=== PATIENT | female | born 1955 | race Caucasian/White ===

== ENCOUNTER 2020-06-21 09:24 | Inpatient (IN) | payer MEDICARE, MEDICAID, SELFPAY ==
[2020-06-21] VITALS (11 sets, daily range): BP systolic 97–138; BP diastolic 53–77; PULSE 83–112; RESP 17–18; TEMP 36.4–36.9; O2SAT 93–99; BMI 29.3
--- NOTE | 2020-06-21 09:48 | ED_ITS ---
HPI - GI Bleed General: Chief complaint: GI Bleed Stated complaint: Bloody Stool Time Seen by Provider: 06/21/20 09:37 History of Present Illness: HPI Narrative: 64-year-old female comes in complaining of abdominal pain with nausea and bloody stools loss of appetite. Bloody stools began last night around 2100 states she has been passing blood mixed with solid stools initially and then turned to just large almost what appeared to be blood clots said it settles to the bottom of the toilet bowl. She is not previously had this level of blood rectal bleeding she has had problems in the past with hemorrhoids although she does not have any abdomen bothering her recently. She is nauseous but not been actually vomiting. Denies chest pain shortness of breath no dysuria urgency or frequency. complaint: blood streaked stool and gross hematochezia Onset (ago): hour(s) Pain Consistency: constant Severity: moderate Relieving factors: rest Exacerbating factors: eating and movement Context: hemorrhoids Associated symptoms: Reports abdominal pain, malaise, nausea and poor appetite; Denies chills, easy bruising, epistaxis, fever(s), headache(s), other bleeding, rash, syncope, vomiting or weakness Treatments Prior to Arrival: none Review of Systems Const: Reports: malaise; Denies: fever(s) or chills ENMT: Denies: epistaxis Card: Denies: syncope Resp: Denies: dyspnea, productive cough or non-productive cough GI: Reports: abdominal pain and nausea; Denies: vomiting : Denies: flank pain, difficulty voiding, dysuria, urinary frequency or urinary urgency Skin/Breast: Denies: rash Neuro: Denies: headache(s) Tai/Lymph: Denies: easy bruising PFSH ED PFSH: Medical History Colon polyps GERD (gastroesophageal reflux disease) HLD (hyperlipidemia) Pancreatitis Pulmonary fungal infection Smoking addiction Surgical History (Updated 06/21/20 @ 15:52 by Ciaran Matos MD) H/O shoulder surgery H/O tubal ligation Hx of cholecystectomy Hx of hysterectomy Partial Family History Father Alzheimer's disease Mother Alzheimer's disease Social History Smoking and tobacco status: current some day smoker Alcohol intake: never Substance/Drug Use: never Lives independently: Yes Household members: significant other Physical Exam Const: COMMON NORMALS: no acute distress GENERAL APPEARANCE: cooperative and comfortable ORIENTATION/CONSCIOUSNESS: Yes awake, Yes oriented to person, Yes oriented to place and Yes oriented to time HENMT: COMMON NORMALS: normocephalic, atraumatic and hearing grossly normal bilaterally HEAD & SCALP: normocephalic and atraumatic Neck/C-Spine: COMMON NORMALS: no JVD Resp: COMMON NORMALS: normal respiratory effort, No retractions, No use of accessory muscles and clear to auscultation bilaterally AUSCULTATION: clear to auscultation bilaterally Cardio: COMMON NORMALS: no JVD, regular rate, regular rhythm and No murmurs present (Cardio) RATE: regular rate RHYTHM: regular rhythm GI: COMMON NORMALS: No hepatosplenomegaly present AUSCULTATION: Yes normoactive bowel sounds PALPATION: Yes Tenderness to palpation present (GI) Details: RLQ, Yes Guarding due to palpation present (GI) in the RLQ and Yes No hepatosplenomegaly present Extremity: COMMON NORMALS: normal to inspection, capillary refill normal, no clubbing, cyanosis or edema, no calf tenderness and no pedal edema Neuro: SENSORIUM/ORIENTATION: Yes oriented to person, Yes oriented to place and Yes oriented to time Skin: COMMON NORMALS: no rashes or lesions noted GENERAL SKIN EXAM: no rashes or lesions noted Course Vital Signs: Vital signs: Vital Signs Temperature 97.6 F 06/21/20 14:00 Pulse Rate 93 06/21/20 15:14 Respiratory Rate 18 06/21/20 15:14 Blood Pressure 101/67 06/21/20 14:17 Pulse Oximetry 94 06/21/20 15:14 MDM - GI Bleed MDM Narrative: Medical decision making narrative: Is a fairly large segment of descending colon that shows signs of colitis with no luminal narrowing no focal point areas are noted on the CT. Concerning because of the amount of air and stool accumulating proximal to that point. That combined with the degree of pain I think it would be best to monitor her here on IV antibiotics discussed Dr. Matos will consult Dr. Vila. I have called and discussed to both of them orders are written. Lab Data: Labs: Lab Results 06/21/20 06/21/20 06/21/20 Range/Units 10:05 10:09 10:09 WBC 10.4 H (4.0-10.0) 10^3/ uL RBC 4.79 (4.1-5.3) 10^6/u L Hgb 14.1 (11.5-15.3) g/dL Hct 44.0 (37.0-47.0) % MCV 91.9 (81-99) fL MCH 29.4 (28.0-34.0) pg MCHC 32.0 (30.0-36.0) g/dL RDW 13.4 (12.1-15.1) % Plt Count 286 (130-400) 10^3/c mm MPV 10.0 (7.4-10.4) fL Neut % (Auto) 67.5 % Lymph % (Auto) 26.3 % Otero % (Auto) 5.4 % Eos % (Auto) 0.3 % Baso % (Auto) 0.3 % Neut # (Auto) 7.00 (1.8-7.7) 10^3/u L Lymph # (Auto) 2.7 (0.8-4.8) 10^3/u L Otero # (Auto) 0.6 (0.2-0.9) 10^3/u L Eos # (Auto) 0.0 (0.0-0.8) 10^3/u L Baso # (Auto) 0.0 (0.0-0.1) 10^3/u L Nucleated RBC % (a uto) 0 % Nucleated RBCs # 0.0 /100WBC PT (12.1-14.9) SECO NDS INR (0.8-1.2) APTT (23.9-36.7) SECO NDS Sodium (136-145) mmol/L Potassium (3.5-5.1) mmol/L Chloride (98-107) mmol/L Carbon Dioxide (22-29) mmol/L Anion Gap (5-19) BUN (8-23) mg/dL Creatinine (0.5-0.9) mg/dL GFR Calculation (90-130) mL/min Glucose (65-115) mg/dL Calculated Osmolal ity (285-295) mOsm/k g Lactic Acid 1.3 (0.5-2.2) mmol/L Calcium (8.5-10.5) mg/dL Magnesium (1.7-2.3) mg/dL Total Bilirubin (0.15-1.2) mg/dL AST (0-32) U/L ALT (0-33) U/L Alkaline Phosphata se (35-105) IU/L Total Protein (6.6-8.7) g/dL Albumin (3.5-5.2) g/dL Globulin (1.3-4.6) g/dL Lipase (13-60) U/L Urine Color Yellow (Yellow) Urine Appearance Clear (CLEAR) Urine pH 6.5 (5-7) Ur Specific Gravit y 1.015 (1.005-1.030) Urine Protein Neg (Negative) Urine Glucose (UA) Norm (Normal) Urine Ketones Negative (Negative) Urine Blood 2+ H (Negative) Urine Nitrate Negative (Negative) Urine Bilirubin Neg (Negative) Urine Urobilinogen Norm (Negative) mg/dL Ur Leukocyte Kaur ase Negative (Negative) Urine RBC 5-10 H (0-2) /hpf Urine WBC 0-4 H (0-5) /hpf Ur Squamous Epith Cells 5-10 H (0-5) /hpf Amorphous Sediment Not Reportable Urine Bacteria 1+ H (NONE) /hpf 06/21/20 06/21/20 Range/Units 10:09 10:09 WBC (4.0-10.0) 10^3/ uL RBC (4.1-5.3) 10^6/u L Hgb (11.5-15.3) g/dL Hct (37.0-47.0) % MCV (81-99) fL MCH (28.0-34.0) pg MCHC (30.0-36.0) g/dL RDW (12.1-15.1) % Plt Count (130-400) 10^3/c mm MPV (7.4-10.4) fL Neut % (Auto) % Lymph % (Auto) % Otero % (Auto) % Eos % (Auto) % Baso % (Auto) % Neut # (Auto) (1.8-7.7) 10^3/u L Lymph # (Auto) (0.8-4.8) 10^3/u L Otero # (Auto) (0.2-0.9) 10^3/u L Eos # (Auto) (0.0-0.8) 10^3/u L Baso # (Auto) (0.0-0.1) 10^3/u L Nucleated RBC % (a uto) % Nucleated RBCs # /100WBC PT 13.30 (12.1-14.9) SECO NDS INR 0.98 (0.8-1.2) APTT 30.2 (23.9-36.7) SECO NDS Sodium 141 (136-145) mmol/L Potassium 4.0 (3.5-5.1) mmol/L Chloride 108 H (98-107) mmol/L Carbon Dioxide 21 L (22-29) mmol/L Anion Gap 16.0 (5-19) BUN 15 (8-23) mg/dL Creatinine 0.5 (0.5-0.9) mg/dL GFR Calculation 123.8 (90-130) mL/min Glucose 107 (65-115) mg/dL Calculated Osmolal ity 293 (285-295) mOsm/k g Lactic Acid (0.5-2.2) mmol/L Calcium 8.6 (8.5-10.5) mg/dL Magnesium 2.1 (1.7-2.3) mg/dL Total Bilirubin 0.2 (0.15-1.2) mg/dL AST 12 (0-32) U/L ALT 14 (0-33) U/L Alkaline Phosphata se 111 H (35-105) IU/L Total Protein 7.1 (6.6-8.7) g/dL Albumin 4.0 (3.5-5.2) g/dL Globulin 3.1 (1.3-4.6) g/dL Lipase 21 (13-60) U/L Urine Color (Yellow) Urine Appearance (CLEAR) Urine pH (5-7) Ur Specific Gravit y (1.005-1.030) Urine Protein (Negative) Urine Glucose (UA) (Normal) Urine Ketones (Negative) Urine Blood (Negative) Urine Nitrate (Negative) Urine Bilirubin (Negative) Urine Urobilinogen (Negative) mg/dL Ur Leukocyte Kaur ase (Negative) Urine RBC (0-2) /hpf Urine WBC (0-5) /hpf Ur Squamous Epith Cells (0-5) /hpf Amorphous Sediment Urine Bacteria (NONE) /hpf Discharge Plan Discharge Patient Disposition: Admitted As Inpatient Admit Provider: Ciaran Matos Clinical Impression: Acute colitis, Obstipation, Stenosis of colon Condition: Stable Coding Level of Care Code 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
[2020-06-21 10:19] LABS: Basophils % 0.3 %; Eosinophils % 0.3 %; Hemoglobin 14.1 g/dL (11.5-15.3); Lymphocytes # 2.7 10^3/uL (0.8-4.8); Lymphocytes % 26.3 %; Mean Corpuscular Hemoglobin 29.4 pg (28.0-34.0); Mean Corpuscular Volume 91.9 fL (81-99); Monocytes # 0.6 10^3/uL (0.2-0.9); Monocytes % 5.4 %; Neutrophils % 67.5 %; Nucleated Red Blood Cells % 0 %; Platelet Count 286 10^3/cmm (130-400); Red Blood Count 4.79 10^6/uL (4.1-5.3); Red Cell Distribution Width 13.4 % (12.1-15.1); White Blood Count 10.4 10^3/uL (4.0-10.0)
[2020-06-21 10:26] LABS: Urine Appearance Clear (CLEAR); Urine Color Yellow (Yellow); pH Urine 6.5 (5-7)
[2020-06-21 10:27] LABS: Add Urine Microscopic? YES; Bilirubin Urine Neg (Negative); Blood Urine 2+ (Negative); Glucose Urine UA Norm (Normal); Ketones Urine Negative (Negative); Leukocyte Esterase Urine Negative (Negative); Nitrate Urine Negative (Negative); Protein Urine Neg (Negative); Specific Gravity, Urine 1.015 (1.005-1.030); Urobilinogen Urine Norm (Negative)
[2020-06-21 10:36] LABS: INR 0.98 (0.8-1.2); Partial Thromboplastin Time 30.2 SECONDS (23.9-36.7)
[2020-06-21 10:40] LABS: Lactic Sepsis W/Reflex 1.3 mmol/L (0.5-2.2)
[2020-06-21 10:42] LABS: Alanine Aminotransferase 14 U/L (0-33); Alkaline Phosphatase 111 IU/L (35-105); Aspartate Amino Transferase 12 U/L (0-32); Blood Urea Nitrogen 15 mg/dL (8-23); Calcium 8.6 mg/dL (8.5-10.5); Carbon Dioxide 21 mmol/L (22-29); Chloride 108 mmol/L (98-107); Globulin 3.1 g/dL (1.3-4.6); Glomerular Filtration Rate 123.8 mL/min (90-130); Glucose 107 mg/dL (65-115); Lipase 21 U/L (13-60); Magnesium 2.1 mg/dL (1.7-2.3); Osmolality Calculated 293 mOsm/kg (285-295); Sodium 141 mmol/L (136-145); Total Bilirubin 0.2 mg/dL (0.15-1.2); Total Protein 7.1 g/dL (6.6-8.7)
[2020-06-21] MEDS: morphine 4 mg/mL SDV 1 mL IVP ×3 (10:45→21:27)
[2020-06-21] MEDS: ondansetron 2 mg/ML SDV 2 mL 4 MG IVP ×3 (10:45→21:30)
[2020-06-21] MEDS: sodium chloride 0.9% 1,000 ML 999 ML IV (10:46)
[2020-06-21 10:48] LABS: WBC Urine 0-4 /hpf (0-5)
[2020-06-21 10:49] LABS: Add Urine Culture? No; Bacteria Urine 1+ /hpf
--- NOTE | 2020-06-21 11:00 | CT_ITS ---
WS: [id number] CT ABDOMEN AND PELVIS WITH CONTRAST HISTORY: Pain, blood in stool. TECHNIQUE: Imaging performed of the abdomen and pelvis with IV contrast. Single phase imaging of the abdomen. Coronal and sagittal reformats are submitted. All CT scans at [facility] use at least one of these dose optimization techniques: automated exposure control; mA and/or kV adjustment per patient size (includes targeted exams where dose is matched to clinical indication); or iterativ e reconstruction. IV CONTRAST: Omnipaque 300; 95 mL IV. Oral contrast: No DLP: 1733.93 mGy.cm COMPARISON: 11/10/2018 Lower thorax: Stable benign granuloma at the LEFT lung base. Heart is normal size. No hiatal hernia. Liver/biliary system: Normal size with no intrahepatic dilatation. Gallbladder: Status post cholecystectomy. Pancreas: Normal size pancreas and pancreatic duct. No adjacent inflammation. Spleen: Normal size spleen. No mass or infarct. Adrenal glands: Normal RIGHT adrenal gland. Low-attenuation nodule in the LEFT adrenal gland measures 12 mm. Probably present on the prior study but better seen today. Right kidney: No obstruction or hydronephrosis. 11 mm low-attenuation nodule in the lower pole of the RIGHT kidney slightly increased in size since the prior study from 2019. Additional too small to judy racterize nodules. Left kidney: Extrarenal pelvis. No hydronephrosis. Aorta: Moderate atherosclerosis with no aneurysm. Lymphadenopathy: None. Free fluid: None. GI tract: Normal appendix. Large amount of retained feces in the RIGHT colon. Beginning at the spleni c flexure there is narrowing of the lumen with circumferential mucosal thickening and mild pericoloni c edema extending to the sigmoid. Long segment of luminal narrowing causing a mild more proximal obst ruction. There are additional diverticula. Abdominal wall: Unremarkable abdominal wall. No hernia. Pelvis: No free fluid or adenopathy within the pelvis. 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 Mild LEFT curvature lumbar spine. CT/CT abdomen pelvis w con* [id number] IMPRESSION: 1. Long segment area of moderate mucosal thickening and luminal narrowing begi nning at the splenic flexure through the sigmoid colon. Due to the long segment involvement this is probably an area of colitis, may be infectious or inflamma tory. 2. Proximal to the luminal narrowing is retention of air and fecal material se condary to a mild obstructive pattern. 3. Prior cholecystectomy. 4. Moderate atherosclerosis aorta. 5. LEFT adrenal 11 mm nodule. Probably present on the prior study from 2019 bu t better seen today due to slight increase in size.
[2020-06-21] MEDS: iohexol 300 mg/mL 100 mL Btl IV (11:18)
--- NOTE | 2020-06-21 11:26 | PC.NURSE ---
nurse present in room whilst ED physician performed rectal exam. occult stool + for blood at bedside
[2020-06-21] MEDS: ciprofloxacin 400 MG/200 ML PREMIX 200 MG IV (12:42)
[2020-06-21] MEDS: metroNIDAZOLE IV 500 MG/100 ML PREMIX 100 MG IV (13:48)
--- NOTE | 2020-06-21 15:47 | PM.HP ---
Providers/Chief Complaint Admitting Physician: Ciaran Matos Primary Care Provider: Jorge Nielson Chief Complaint: Bloody Stool History of Present Illness Pleasant 64-year-old lady with history of colonic polyps, followed by colonoscopy at [facility] by Dr. 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 Then this morning again diarrhea mixed with blood, and subsequently stool hardened to pellet consistency. Reports has occasional loose stools ever since having cholecystectomy, but never bloody diarrhea. Reports was feeling hot yesterday. Denies measuring fever. Has been having nausea, no vomiting. Her boyfriend has been doing okay. Chicken brats or from [email or web address]. States the boiled and first, then fried. Denies eating at any other outside places. Did not collect/eat any much from [place] did not drink any water from outside. States gets bottled water. In ER noted with minutely elevated WBC count 10.4, afebrile, heart rate initially in the 100s, then in the 90s. Hemoglobin 14.1. Platelets 286. INR 0.98. Sodium 141. Potassium 4. Chloride 108. Bicarbonate 21. Anion gap 16. BUN 15. Creatinine 0.5. Lactic acid 1.3. Calcium 8.6. Magnesium 2.1. Bilirubin 0.2. AST 12. ALT 14. Alk phos 111. Urinalysis with 5-10 RBC. 0-4 WBC. 5-10 squamous epithelial cells. 1+ bacteria. In ER CT abdomen pelvis showing long segment area of moderate mucosal thickening and luminal narrowing beginning at splenic flexure through the sigmoid colon. Due to long segment involved thought to be probably area of colitis. May be infectious or inflammatory. Proximal to the luminal narrowing is retention of air and fecal matter secondary to mild obstructive pattern. Prior cholecystectomy. Moderate atherosclerotic aorta. Left adrenal 11 mm nodule. Thought to be probably present on prior study in 2019, but better seen currently due to slight increase in size. She denies any aspirin, anticoagulation use. Review of Systems Const: Reports: malaise; Denies: fever(s), chills or body aches Eyes: Denies: change in vision or eye redness ENMT: Denies: throat pain, oral sores or ear or mastoid pain Card: Denies: chest pain, edema, pre-syncope or dyspnea on exertion Resp: Denies: dyspnea, productive cough, change in phlegm color or hemoptysis GI: Reports: abdominal pain, nausea, diarrhea and hematochezia; Denies: vomiting, constipation or melena : Denies: flank pain, urinary frequency or hematuria Musc: Denies: back pain, joint swelling or joint redness Skin/Breast: Denies: rash, sores or new lesions Neuro: Denies: headache(s), numbness in extremities, weakness in extremities, dizziness, confusion or seizure-like activity Endo: Denies: polyuria or polydipsia Tai/Lymph: Denies: easy bleeding or purpura All/Imm: Denies: urticaria, throat swelling or tongue swelling Medications/Allergies Home Medications Medication Instructions Recorded Confirmed Last Taken Type fenofibrate nanocrystallized 48 mg PO DAILY 06/21/20 06/21/20 06/21/20 History lovastatin 20 mg PO DAILY 06/21/20 06/21/20 06/20/20 History omeprazole 40 mg PO DAILY 06/21/20 06/21/20 06/20/20 History tiotropium bromide [Spiriva with 1 cap INHALATION DAILY 06/21/20 06/21/20 06/20/20 History HandiHaler] Allergies Allergy/AdvReac Type Severity Reaction Status Date / Time latex Allergy ALGY-Hives Verified 06/21/20 09:34 PFSH Acute PFSH: Medical History Colon polyps GERD (gastroesophageal reflux disease) HLD (hyperlipidemia) Pancreatitis Pulmonary fungal infection Smoking addiction Surgical History (Updated 06/21/20 @ 15:52 by Ciaran Matos MD) H/O shoulder surgery H/O tubal ligation Hx of cholecystectomy Hx of hysterectomy Partial Family History Father Alzheimer's disease Mother Alzheimer's disease Social History Smoking and tobacco status: current some day smoker Alcohol intake: never Substance/Drug Use: never Lives independently: Yes Household members: significant other Vitals/I&O/Wt Last Vital Signs Temp 97.6 F 06/21/20 14:00 Pulse 93 06/21/20 15:14 Resp 18 06/21/20 15:14 BP 101/67 06/21/20 14:17 Pulse Ox 94 06/21/20 15:14 06/21/20 06/21/20 06/21/20 06:59 14:59 22:59 Intake Total 1200 / 1200 100 / 1300 Balance 1200 / 1200 100 / 1300 Weight last 48 hrs Weight 90.265 kg Physical Exam Const: COMMON NORMALS: no acute distress and patient oriented x3 HENMT: COMMON NORMALS: oropharynx normal Neck/C-Spine: COMMON NORMALS: no JVD Resp: COMMON NORMALS: normal respiratory effort and clear to auscultation bilaterally AUSCULTATION: clear to auscultation bilaterally Cardio: COMMON NORMALS: no JVD, regular rhythm, S1 normal heart sound present, S2 normal heart sound present and No murmurs present (Cardio) RHYTHM: regular rhythm HEART SOUNDS: S1 normal heart sound present and S2 normal heart sound present GI: COMMON NORMALS: Normal to inspection, nondistended, normoactive bowel sounds present and Soft to palpation PALPATION: Yes Soft to palpation and Yes Tenderness to palpation present (GI) (Right lower quadrant) Extremity: COMMON NORMALS: no joint enlargement and no pedal edema Neuro: COMMON NORMALS: patient oriented x3 and moves all extremities Skin: COMMON NORMALS: no rashes or lesions noted GENERAL SKIN EXAM: no rashes or lesions noted Data : 06/21/20 10:09 06/21/20 10:09 A&P Assessment and plan (1) Acute colitis: Acute colitis with hemorrhagic component, long segment of area of moderate mucosal thickening and luminal narrowing in the splenic flexure through the sigmoid colon. Occasional prior loose stools following cholecystectomy, but no history of bloody diarrhea that is recurrent. IBD. Suspected colitis secondary to infectious cause at this time. Possible inflammatory differential diagnosis. However, as discussed with her with history of polyps, smoking addiction, will need additional follow-up by endoscopy to exclude other causes including malignancy. At this time we will try to collect stool samples for laboratory analysis including culture, ova and parasites, C. difficile. Discussed with her options for treatment. She received Cipro and Flagyl in the ER. We will continue antibiotics for now. Discussed possibility of worsening/complication of hemorrhagic colitis with antibiotic treatment, risk of HUS. She is for now agreeable to continue. Follow labs. Bowel rest. No vomiting so far, hold off on NG tube. She requests for something to drink. Discussed with her bowel rest, she is agreeable for sips of water, ice chips for now. IV hydration. Symptomatic treatment of nausea, pain. Recheck hemoglobin. Status: Acute (2) Obstipation: With noted proximal to the luminal narrowing retention of air and fecal matter secondary to mild obstructive pattern. Discussed with her. For now bowel rest. In case of vomiting consider NG tube placement. Bowel regimen. Status: Acute (3) Stenosis of colon: Possible mild obstruction or pseudoobstruction. Discussed with her, possibly narrowing of the lumen secondary to mucosal inflammation, colitis, however, she is aware will need additional endoscopic follow-up after improvement of symptoms to exclude other causes including malignancy, inflammatory causes, etc. Status: Acute (4) Smoking addiction: Encouraged smoking cessation. Nicotine replacement as needed for cravings. Status: Acute (5) Microscopic hematuria: Incidentally noted. No urinary symptoms otherwise. Will need follow-up for resolution. Some of this May be secondary to bloody diarrhea with contamination of urine. Status: Acute (6) Alkaline phosphatase elevation: Incidental. Will request for GGT. Recheck liver parameters. INR is normal. Status post cholecystectomy. No intrahepatic dilation on CT. Status: Acute (7) Sinus tachycardia: Noted. Otherwise does not fit sepsis pattern. Monitor. Perhaps mild component of dehydration. Yesterday chicken brats were her only meal and with diarrhea. IV hydration while with bowel rest. Status: Acute Additional A&P Information GERD History of pulmonary fungal infection: Currently takes Spiriva HLD Attestations Medical Necessity Statement*: Admission of over 2 midnights ago to be needed for assessment of management of acute hemorrhagic colitis, mild obstruction or pseudoobstruction of bowel. Coding Level of Care Code Acute Drapery Examiner for [facility] Diagnoses Acute colitis K52.9 Obstipation K59.00 Stenosis of colon K56.699 Smoking addiction F17.200 Microscopic hematuria R31.29 Alkaline phosphatase elevation R74.8 Sinus tachycardia R00.0
[2020-06-21] MEDS: lactated ringers 1,000 ML 100 ML IV (16:04)
[2020-06-21] MEDS: famotidine 20 mg/2 mL INJ IVP (16:05)
[2020-06-21] MEDS: bisacodyl 10 mg Supp PR (16:06)
[2020-06-21] MEDS: heparin 5,000 unit/mL INJ 1 mL 5000 UNIT SUBCUT (16:06)
--- NOTE | 2020-06-21 16:27 | P.CONIM_ITS ---
Providers/Reason For Consult Consulting Physican/Specialty*: General Surgery Tyrone Roque MD Reason for Consult*: Colitis by CT, hematochezia. Attending Physician: Ciaran Matos Primary Care Provider: Jorge Nielson History of Present Illness History of Present Illness Danielle Cervantes is a 64 year old female who says she was in her normal state of health until last night around 9 PM when she had some bloody diarrhea. She says she has diarrhea frequently ever since she underwent a cholecystectomy in the past. She has never seen blood before, however. She spent her day doing some yard work yesterday and went looking for some mushrooms but did not find any to eat. She ended up having a chicken brat last night after it had been cooked thoroughly. Her boyfriend had the same thing and did not experience any problems. She drinks bottled water. She cannot think of any other strange food or drink over the past several days that she ate that he did not. The patient says during the night last night she continued to have bloody diarrhea. She had some chills and suspected she was running a fever but never took her temperature. She became nauseated but never vomited. She continues to pass flatus. She came to the hospital and a CAT scan showed changes consistent with colitis in the descending colon with some air and stool backed up behind this area. She says her bowel habits over the past several days have otherwise been completely normal for her and she normally has a bowel movement every day. She had a bowel movement just before coming up to the hospital floor and said there was still some blood in her stool. Of note, the patient has a history of colon polyps and frequently has colonoscopies in [place] (Dr. Schuster). She says her last colonoscopy was 2 or 3 years ago and she was told to have another colonoscopy in 5 years at that time. She seems to recall having several polyps removed during the last colonoscopy. She denies any regular NSAID use. Stool studies have been ordered. The patient is on ciprofloxacin and metronidazole. She is also on some subcutaneous heparin currently for DVT prophylaxis. Review of Systems General: Reports: 10 or more systems reviewed and unremarkable except in HPI and below Const: Reports: chills GI: Reports: abdominal pain, nausea, diarrhea (Somewhat chronic ever since her cholecystectomy) and hematochezia (Not usual at all for the patient); Denies: vomiting Meds/Allergies Home Medications and Allergies Home Medications Medication Instructions Recorded Confirmed Last Taken Type fenofibrate nanocrystallized 48 mg PO DAILY 06/21/20 06/21/20 06/21/20 History lovastatin 20 mg PO DAILY 06/21/20 06/21/20 06/20/20 History omeprazole 40 mg PO DAILY 06/21/20 06/21/20 06/20/20 History tiotropium bromide [Spiriva with 1 cap INHALATION DAILY 06/21/20 06/21/20 06/20/20 History HandiHaler] Allergies Allergy/AdvReac Type Severity Reaction Status Date / Time latex Allergy ALGY-Hives Verified 06/21/20 09:34 Current Medications Current Medications Generic Name Dose Route Start Last Admin Trade Name Freq PRN Reason Stop Dose Admin Bisacodyl 10 mg 06/21/20 15:05 06/21/20 16:06 Bisacodyl 10 Mg Supp OK 10 mg DAILY SAIMA Administration Famotidine 20 mg 06/21/20 15:05 06/21/20 16:05 Famotidine 20 Mg/2 Ml Inj IVP 20 mg Q12H SAIMA Administration Heparin Sodium (Beef Lung) 5,000 unit 06/21/20 16:00 06/21/20 16:06 Heparin 5,000 Unit/Ml Inj 1 Ml SUBCUT 5,000 unit Q12H SAIMA Administration Lactated Ringer's 1,000 mls @ 100 mls/hr 06/21/20 15:05 06/21/20 16:04 Lactated Ringers IV 100 mls/hr .Q10H SAIMA Administration Ondansetron HCl 4 mg 06/21/20 15:05 06/21/20 15:27 Ondansetron 2 Mg/Ml Sdv 2 Ml IVP 4 mg Q6H PRN Administration NAUSEA AND VOMITING PFSH Acute PFSH: Medical History Colon polyps GERD (gastroesophageal reflux disease) History of kidney stones HLD (hyperlipidemia) Pancreatitis Pulmonary fungal infection Smoking addiction Surgical History (Updated 06/21/20 @ 16:46 by Tyrone Roque MD) H/O shoulder surgery Left H/O tubal ligation Hx of cholecystectomy Hx of hysterectomy Partial Kidney stone on right side Removed through lower abdominal incision in the 1970s Family History Father Alzheimer's disease Mother Alzheimer's disease Social History (Updated 06/21/20 @ 16:47 by Tyrone Roque MD) Smoking and tobacco status: current some day smoker cigarettes Packs smoked per day: 0.75 Years cigarettes smoked: 50 Alcohol intake: never Substance/Drug Use: never Lives independently: Yes Household members: significant other Vitals/I&O/Wt Last Vital Signs Temp 97.6 F 06/21/20 14:00 Pulse 93 06/21/20 15:14 Resp 18 06/21/20 15:14 BP 101/67 06/21/20 14:17 Pulse Ox 94 06/21/20 15:14 06/21/20 06/21/20 06/21/20 06:59 14:59 22:59 Intake Total 1200 / 1300 100 / 1300 Balance 1200 / 1300 100 / 1300 Weight last 48 hrs Weight 199 lb Physical Exam Narrative: EXAM NARRATIVE: The patient was encountered in her hospital room. She does not appear to be in any distress. The pupils are equal. No carotid bruits are heard. The lungs are clear anteriorly. The heart seems regular. The abdomen is moderately obese but is soft. Bowel sounds seem hypoactive to me. The patient seems to have moderate tenderness along the right side of the abdomen and into the right upper quadrant. She has minimal tenderness otherwise including the left side of the abdomen. The extremities reveal no edema. Neurologically the patient appears to be grossly intact. Skin: RASHES: rashes noted Data Imaging^: CT Abd/Pel: Radiologist's impression: CT abdomen/pelvis 06/21/2020 IMPRESSION: 1. Long segment area of moderate mucosal thickening and luminal narrowing beginning at the splenic flexure through the sigmoid colon. Due to the long segment involvement this is probably an area of colitis, may be infectious or inflammatory. 2. Proximal to the luminal narrowing is retention of air and fecal material secondary to a mild obstructive pattern. 3. Prior cholecystectomy. 4. Moderate atherosclerosis aorta. 5. LEFT adrenal 11 mm nodule. Probably present on the prior study from 2019 but better seen today due to slight increase in size. A&P Assessment and plan (1) Acute colitis: I agree with the assessment on the CAT scan. The patient seems to have all of her tenderness on the right side of the abdomen, however, possibly from the buildup of stool in the ascending colon. I do not see an obvious obstructive process anywhere in the proximal colon, in the transverse colon appears to primarily be filled with air. Around the area of change at the distal transverse/splenic flexure there does appear to be some narrowing consistent with inflammation/edema/luminal narrowing as a result. Stool studies pending. Patient is on ciprofloxacin and metronidazole. Patient receiving bisacodyl. Watch hemoglobin level with possible need to discontinue subcutaneous heparin if ongoing bleeding occurs. I will check a CEA level for the sake of completeness, and we will continue following with you while the patient is hospitalized. Status: Acute Consult Attestations Medical Necessity Statement: See admitting service's notation. 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
[2020-06-21 17:02] LABS: Gamma Glutamyl Transferase 50 U/L (5-36)
[2020-06-21] MEDS: metoclopramide 5 mg/mL SDV 2 mL IVP (18:59)
[2020-06-21] MEDS: acetaminophen 325 mg Tablet 650 MG PO (18:59)
[2020-06-22] VITALS (8 sets, daily range): BP systolic 101–115; BP diastolic 66–70; PULSE 78–90; RESP 16–18; TEMP 36.4–36.7; O2SAT 92–96
[2020-06-22] MEDS: acetaminophen 325 mg Tablet 650 MG PO ×3 (01:32→16:34)
[2020-06-22] MEDS: lactated ringers 1,000 ML 100 ML IV ×2 (02:02→11:48)
[2020-06-22] MEDS: ciprofloxacin 400 MG/200 ML PREMIX 200 MG IV ×2 (02:02→11:50)
[2020-06-22] MEDS: heparin 5,000 unit/mL INJ 1 mL 5000 UNIT SUBCUT ×2 (04:08→16:30)
[2020-06-22] MEDS: famotidine 20 mg/2 mL INJ IVP ×2 (04:47→14:35)
[2020-06-22 05:57] LABS: Basophils % 0.5 %; Eosinophils # 0.1 10^3/uL (0.0-0.8); Hematocrit 40.1 % (37.0-47.0); Hemoglobin 12.7 g/dL (11.5-15.3); Lymphocytes # 2.5 10^3/uL (0.8-4.8); Mean Corpuscular HGB Conc 31.7 g/dL (30.0-36.0); Mean Corpuscular Hemoglobin 29.7 pg (28.0-34.0); Mean Corpuscular Volume 93.9 fL (81-99); Monocytes # 0.5 10^3/uL (0.2-0.9); Monocytes % 6.5 %; Neutrophils # 4.65 10^3/uL (1.8-7.7); Neutrophils % 59.6 %; Nucleated Red Blood Cells % 0 %; Platelet Count 232 10^3/cmm (130-400); Red Blood Count 4.27 10^6/uL (4.1-5.3); Red Cell Distribution Width 13.8 % (12.1-15.1); White Blood Count 7.8 10^3/uL (4.0-10.0)
[2020-06-22 06:18] LABS: Alanine Aminotransferase 33 U/L (0-33); Albumin Level 3.2 g/dL (3.5-5.2); Alkaline Phosphatase 108 IU/L (35-105); Anion Gap 11.7 (5-19); Aspartate Amino Transferase 27 U/L (0-32); Blood Urea Nitrogen 10 mg/dL (8-23); Calcium 7.7 mg/dL (8.5-10.5); Carbon Dioxide 24 mmol/L (22-29); Chloride 105 mmol/L (98-107); Globulin 2.4 g/dL (1.3-4.6); Glomerular Filtration Rate 100.3 mL/min (90-130); Glucose 91 mg/dL (65-115); Osmolality Calculated 283 mOsm/kg (285-295); Potassium 3.7 mmol/L (3.5-5.1); Sodium 137 mmol/L (136-145); Total Bilirubin 0.4 mg/dL (0.15-1.2); Total Protein 5.6 g/dL (6.6-8.7)
--- NOTE | 2020-06-22 07:42 | PM.PN ---
Subjective Subjective: Interval history: The patient feels better. She says her right-sided abdominal pain is nearly completely gone. She continues to have some loose stool but has not seen any blood in the recent bowel movements. She would like something to eat or drink. Vitals/I&O/Wt Last Vital Signs Temp 97.9 F 06/22/20 07:37 Pulse 78 06/22/20 07:37 Resp 17 06/22/20 07:37 BP 103/67 06/22/20 07:37 Pulse Ox 96 06/22/20 07:37 06/21/20 06/22/20 06/22/20 22:59 06:59 14:59 Intake Total 100 / 2296.667 996.667 / 2296.667 Output Total 350 / 350 Balance 100 / 1946.667 646.667 / 1946.667 Weight last 48 hrs Weight 203 lb 6.4 oz Weight 199 lb Physical Exam Narrative: EXAM NARRATIVE: Bowel sounds seem more normal to me today. She does have decreased tenderness about the abdomen. Data : 06/22/20 05:12 06/22/20 05:12 Other Labs: Laboratory Tests 06/21/20 10:09 Carcinoembryonic Ag 7.0 H Micro: Microbiology 06/21/20 18:00 C.difficile Toxin B Gene (PCR) - Final Stool Routine Collection 06/21/20 18:00 Stool Lactoferrin - Final Stool A&P Assessment and plan (1) Acute colitis: C. difficile negative. White blood cell count is normal. The patient exam is improved, but she never really did have much in the way of left-sided abdominal discomfort which is where her CAT scan indicates her colitis is. Continue Cipro/Flagyl. Status: Acute (2) Right sided abdominal pain: Nearly completely resolved. I told the patient we would change her laxative to as needed. Clear liquid diet. Status: Acute (3) Elevated CEA: The patient CEA is mildly elevated at 7.0. She is a smoker, but this is still above the normal range. I told her that she is going to require another colonoscopy in 4 to 6 weeks, assuming continued improvement of her suspected colitis. Status: Acute Attestations Medical Necessity Statement*: See admitting service's notation. 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
[2020-06-22] MEDS: polyethylene glycol 3350 Pkt 17 gm PO (16:30)
--- NOTE | 2020-06-22 20:21 | P.PN_ITS ---
Subjective Subjective: Interval history: Showing improvement. Pain in the abdomen appears to be improving. Some additional loose stool earlier in the day. Resolution of hematochezia. No vomiting. Tolerating clear liquids, wanting to advance to full liquid diet. Vitals/I&O/Wt Last Vital Signs Temp 98.1 F 06/22/20 19:06 Pulse 83 06/22/20 19:06 Resp 18 06/22/20 19:06 BP 115/67 06/22/20 19:06 Pulse Ox 95 06/22/20 19:06 06/22/20 06/22/20 06/22/20 06:59 14:59 22:59 Intake Total 996.667 / 2296.667 2076.667 / 2076.667 740 / 2816.667 Output Total 350 / 350 Balance 646.667 / 7425.841 4629.667 / 2076.667 740 / 2816.667 Weight last 48 hrs Weight 92.261 kg Weight 90.265 kg Physical Exam Const: COMMON NORMALS: no acute distress and patient oriented x3 HENMT: COMMON NORMALS: oropharynx normal Neck/C-Spine: COMMON NORMALS: no JVD Resp: COMMON NORMALS: normal respiratory effort and clear to auscultation bilaterally AUSCULTATION: clear to auscultation bilaterally Cardio: COMMON NORMALS: no JVD, regular rhythm, S1 normal heart sound present, S2 normal heart sound present and No murmurs present (Cardio) RHYTHM: regular rhythm HEART SOUNDS: S1 normal heart sound present and S2 normal heart sound present GI: COMMON NORMALS: Normal to inspection, nondistended, normoactive bowel sounds present, Soft to palpation and non-tender PALPATION: Yes Soft to palpation Extremity: COMMON NORMALS: no joint enlargement and no pedal edema Neuro: COMMON NORMALS: patient oriented x3 and moves all extremities Skin: COMMON NORMALS: no rashes or lesions noted GENERAL SKIN EXAM: no rashes or lesions noted Data : 06/22/20 05:12 06/22/20 05:12 Micro: Microbiology 06/21/20 18:00 Enteric Pathogens (PCR) - Final Stool Routine Collection Parasite Antigen Panel - Final C.difficile Toxin B Gene (PCR) - Final 06/21/20 18:00 Stool Lactoferrin - Final Stool A&P Assessment and plan (1) Acute colitis: Improving. Hematochezia resolved. Diarrhea improving. Tolerating diet. If continues to show improvement, consideration may be given to transition to oral antibiotics, and possibly discharge with follow-up on outpatient side. Surgery assessment is appreciated. Discussed with her recommendations. Discussed also apparent elevation of CEA at 7. Significance of this is not clear at this time. She intends to follow-up with surgery for coloscopic evaluation 4-6 weeks after resolution. But overall the CEA may be elevated due to smoking, sometimes as much as 1.5 times compared to non-smokers. This result currently is not really helpful. She appears to be responding to antibiotics. At this time we will hold off on checking CRP, ESR. In case of persistence or recurrence of symptoms this may be considered, although inflammatory bowel disease is probably less likely given lack of history under clinical course. C. difficile is negative. Stool culture, ova and parasites are negative. DC IVF. Symptomatic treatment of nausea, pain. Recheck hemoglobin. Status: Acute (2) Obstipation: No vomiting. Trial of diet which so far is going well. Bowel regimen. Status: Acute (3) Stenosis of colon: Coloscopic follow-up after resolution. Possible mild obstruction or pseudoobstruction. Discussed with her, possibly narrowing of the lumen secondary to mucosal inflammation, colitis, however, she is aware will need additional endoscopic follow-up after improvement of symptoms to exclude other causes including malignancy, inflammatory causes, etc. Status: Acute (4) Smoking addiction: Encouraged smoking cessation. Nicotine replacement as needed for cravings. Status: Acute (5) Microscopic hematuria: Incidentally noted. No urinary symptoms otherwise. Will need follow-up for resolution due to smoking history and risk of urinary tract cancers. Suspected probably secondary to bloody diarrhea with contamination of urine. Status: Acute (6) Alkaline phosphatase elevation: GGT is elevated. Alk phos today is back to nearly normal. Incidental. Significance of this is unclear. With GGT elevation may be concerning for bone origin, although does not appear to have any recent trauma or other skeletal concerns. Status post cholecystectomy. No intrahepatic dilation on CT. Unclear if this may be relating to acute illness. This may benefit from follow- up in outpatient clinic after resolution of acute illness to see if this resolves as well, otherwise may need additional work-up. Status: Acute (7) Sinus tachycardia: Resolved Status: Acute Additional A&P Information GERD History of pulmonary fungal infection: Currently takes Spiriva HLD Attestations Medical Necessity Statement*: Continue admission for assessment management of improving acute colitis with colon stenosis, obstipation, partial bowel pseudoobstruction, trial of diet, disposition planning. 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
[2020-06-23] MEDS: ciprofloxacin 400 MG/200 ML PREMIX 200 MG IV (01:23)
[2020-06-23 04:00] VITALS: BP 107/73; PULSE 87; RESP 18; TEMP 36.6; O2SAT 95
[2020-06-23] MEDS: heparin 5,000 unit/mL INJ 1 mL 5000 UNIT SUBCUT (04:00)
[2020-06-23] MEDS: famotidine 20 mg/2 mL INJ IVP (04:09)
[2020-06-23 05:52] LABS: Basophils % 0.6 %; Eosinophils # 0.1 10^3/uL (0.0-0.8); Eosinophils % 1.3 %; Hematocrit 41.2 % (37.0-47.0); Hemoglobin 13.1 g/dL (11.5-15.3); Lymphocytes # 2.6 10^3/uL (0.8-4.8); Lymphocytes % 37.8 %; Mean Corpuscular HGB Conc 31.8 g/dL (30.0-36.0); Mean Corpuscular Hemoglobin 29.5 pg (28.0-34.0); Mean Corpuscular Volume 92.8 fL (81-99); Mean Platelet Volume 9.9 fL (7.4-10.4); Monocytes # 0.4 10^3/uL (0.2-0.9); Monocytes % 6.4 %; Neutrophils # 3.68 10^3/uL (1.8-7.7); Neutrophils % 53.5 %; Nucleated Red Blood Cells % 0 %; Platelet Count 251 10^3/cmm (130-400); Red Blood Count 4.44 10^6/uL (4.1-5.3); Red Cell Distribution Width 13.2 % (12.1-15.1); White Blood Count 6.9 10^3/uL (4.0-10.0)
[2020-06-23 06:09] LABS: Alanine Aminotransferase 30 U/L (0-33); Albumin Level 3.3 g/dL (3.5-5.2); Alkaline Phosphatase 114 IU/L (35-105); Anion Gap 12.7 (5-19); Aspartate Amino Transferase 20 U/L (0-32); Blood Urea Nitrogen 5 mg/dL (8-23); Calcium 7.9 mg/dL (8.5-10.5); Carbon Dioxide 25 mmol/L (22-29); Chloride 105 mmol/L (98-107); Globulin 2.6 g/dL (1.3-4.6); Glomerular Filtration Rate 123.8 mL/min (90-130); Glucose 83 mg/dL (65-115); Osmolality Calculated 284 mOsm/kg (285-295); Potassium 3.7 mmol/L (3.5-5.1); Sodium 139 mmol/L (136-145); Total Bilirubin 0.3 mg/dL (0.15-1.2); Total Protein 5.9 g/dL (6.6-8.7)
--- NOTE | 2020-06-23 08:22 | P.PN_ITS ---
Subjective Subjective: Interval history: The patient feels well. She continues to have some loose stool but still has not seen any more blood since initially presenting. She is anxious to go home. Vitals/I&O/Wt Last Vital Signs Temp 97.8 F 06/23/20 04:00 Pulse 87 06/23/20 04:00 Resp 18 06/23/20 04:00 BP 107/73 06/23/20 04:00 Pulse Ox 95 06/23/20 04:00 06/22/20 06/23/20 06/23/20 22:59 06:59 14:59 Intake Total 1740 / 4116.667 300 / 4116.667 Output Total 180 / 180 Balance 1740 / 3936.667 120 / 3936.667 Weight last 48 hrs Weight 203 lb 1.6 oz Weight 203 lb 6.4 oz Weight 199 lb Physical Exam Narrative: EXAM NARRATIVE: Minimal right lower quadrant remains tenderness on exam. Data : 06/23/20 05:04 06/23/20 05:04 Micro: Microbiology 06/21/20 18:00 Enteric Pathogens (PCR) - Final Stool Routine Collection Parasite Antigen Panel - Final C.difficile Toxin B Gene (PCR) - Final A&P Assessment and plan (1) Acute colitis: Improvement. I have rediscussed the recommendation for the patient to have a colonoscopy in 4 to 6 weeks. She said she would prefer to see me for this as opposed to going back to [place]. I will make arrangements for her to get an appointment with me as an outpatient prior to discharge. Status: Acute (2) Right sided abdominal pain: Nearly completely resolved. Soft diet. Status: Acute (3) Elevated CEA: The patient CEA is mildly elevated at 7.0. She is a smoker, but this is still slightly above the normal range even taking that into consideration. Status: Acute Attestations Medical Necessity Statement*: See admitting service's notation. 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
[2020-06-23 08:27] VITALS: BP 108/71; PULSE 93; RESP 16; TEMP 36.4; O2SAT 92
[2020-06-23 08:42] VITALS: PULSE 101; RESP 20; O2SAT 97
[2020-06-23 08:44] VITALS: PULSE 111
[2020-06-23] MEDS: metroNIDAZOLE IV 500 MG/100 ML PREMIX 100 MG IV ×2 (08:58)
[2020-06-23] MEDS: polyethylene glycol 3350 Pkt 17 gm PO (08:58)
--- NOTE | 2020-06-23 09:41 | P.DS_ITS ---
Discharge Providers Date of Admission: 06/21/20 12:38 Date of Discharge: June 23, 2020 Attending Provider at Admission: Ciaran Matos Attending Provider at Discharge: Ciaran Matos Primary Care Provider: Jorge Nielson Diagnoses at Discharge Discharge Diagnosis (1) Acute colitis: Status: Acute (2) Right sided abdominal pain: Status: Acute (3) Elevated CEA: Status: Acute (4) Sinus tachycardia: Status: Acute (5) Alkaline phosphatase elevation: Status: Acute (6) Microscopic hematuria: Status: Acute (7) Stenosis of colon: Status: Acute (8) Obstipation: Status: Acute (9) Smoking addiction: Status: Acute Reason for Visit Reason for Visit: Bloody Stool Hospital Course Hospital Course Very pleasant 64-year-old lady, current smoker, with history of colon polyps, pancreatitis, remote history of pulmonary fungal infection, GERD, HLD, was admitted for assessment management after presenting with episodes of bloody diarrhea, transient obstipation, nausea, with noted long segment of moderate mucosal thickening and luminal narrowing in the splenic flexure through the sigmoid colon on abdominal imaging. She has had prior episodes of loose stools occasionally following her cholecystectomy, but not episodes of bloody diarrhea. Stool studies were requested, tested for C. difficile, stool culture, ova par asites all were negative. Due to colonic luminal narrowing, possible mild obstruction or pseudoobstruction, was also assessed by surgery. No interventions were required at this time. Her stools resumed, initially with resolution of hematochezia, and subsequently with improvement in diarrhea. She was empirically treated with ciprofloxacin and Flagyl at this time for suspected infectious colitis. On presentation her CEA was sent, and was mildly elevated at 7. Significance of this result is unclear, and could be secondary to smoking history. However, per discussion with surgery she is asked to follow-up in 4-6 weeks for endoscopic reevaluation to exclude other causes of her symptoms. On presentation of note she was also found to have microscopic hematuria. This may be related to the hematochezia she was having, however, please reassess her urine to ensure resolution. With smoking history she is at elevated risk of urinary tract cancers, and in case of persistent hematuria this would need additional evaluation. She incidentally was also noted to have mild alkaline phosphatase elevation, with mild elevation of GGT to follow. Status post cholecystectomy noted on CT abdomen pelvis. Normal size liver with no intrahepatic dilation. Mild cholestasis is possible with acute illness, diarrhea, poor appetite, dehydration. Modulation of alkaline phosphatase so far has not resolved. Please follow-up levels after acute illness, consider additional work-up in case there is persistence of abnormal results. Physical Exam Narrative: EXAM NARRATIVE: Having a visitor. Const: COMMON NORMALS: no acute distress, patient oriented x3 and alert GENERAL APPEARANCE: cooperative and comfortable ORIENTATION/CONSCIOUSNESS: Yes awake OTHER: She is feeling much better, denies any pain. She is eating well. Wants to advance diet further. Requesting about going home. HENMT: COMMON NORMALS: oropharynx normal Neck/C-Spine: COMMON NORMALS: no JVD Resp: COMMON NORMALS: normal respiratory effort and clear to auscultation bilaterally AUSCULTATION: clear to auscultation bilaterally Cardio: COMMON NORMALS: no JVD, regular rhythm, S1 normal heart sound present, S2 normal heart sound present and No murmurs present (Cardio) RHYTHM: regular rhythm HEART SOUNDS: S1 normal heart sound present and S2 normal heart sound present GI: COMMON NORMALS: Normal to inspection, nondistended, normoactive bowel sounds present, Soft to palpation and non-tender PALPATION: Yes Soft to palpation Extremity: COMMON NORMALS: no joint enlargement and no pedal edema Neuro: COMMON NORMALS: patient oriented x3 and moves all extremities SENSORIUM/ORIENTATION: Yes alert Skin: COMMON NORMALS: no rashes or lesions noted GENERAL SKIN EXAM: no rashes or lesions noted Discharge Data Data Completed and Pending: Completed Studies During Hospitalization Category Date Time Status CT abdomen pelvis w con* [id number] Stat Cat Scan 06/21/20 11:00 Completed Pending at discharge Category Date Time Status Complete Blood Co unt w/Auto AM LABS Lab 06/24/20 04:00 Ordered Complete Blood Co unt w/Auto AM LABS Lab 06/25/20 04:00 Ordered Comprehensive Met abolic Panel AM LA BS Lab 06/24/20 04:00 Ordered Comprehensive Met abolic Panel AM LA BS Lab 06/25/20 04:00 Ordered Labs from last 24 hours 06/23/20 06/23/20 05:04 05:04 WBC 6.9 RBC 4.44 Hgb 13.1 Hct 41.2 MCV 92.8 MCH 29.5 MCHC 31.8 RDW 13.2 Plt Count 251 MPV 9.9 Neut % (Auto) 53.5 Lymph % (Auto) 37.8 Upson % (Auto) 6.4 Eos % (Auto) 1.3 Baso % (Auto) 0.6 Neut # (Auto) 3.68 Lymph # (Auto) 2.6 Upson # (Auto) 0.4 Eos # (Auto) 0.1 Baso # (Auto) 0.0 Nucleated RBC % (a uto) 0 Nucleated RBCs # 0.0 Sodium 139 Potassium 3.7 Chloride 105 Carbon Dioxide 25 Anion Gap 12.7 BUN 5 L Creatinine 0.5 GFR Calculation 123.8 Glucose 83 Calculated Osmolal ity 284 L Calcium 7.9 L Total Bilirubin 0.3 AST 20 ALT 30 Alkaline Phosphata se 114 H Total Protein 5.9 L Albumin 3.3 L Globulin 2.6 Vitals: Last Vital Signs Temp 97.6 F 06/23/20 08:27 Pulse 111 H 06/23/20 08:44 Resp 20 H 06/23/20 08:42 BP 108/71 06/23/20 08:27 Pulse Ox 97 06/23/20 08:42 Discharge Plan Discharge Patient Disposition: Home Condition: Stable Prescriptions: New ciprofloxacin HCl [Cipro] 500 mg tablet 500 mg PO BID Qty: 7 RF: 0 metronidazole [Flagyl] 500 mg tablet 500 mg PO TID Qty: 21 RF: 0 Continued omeprazole 40 mg capsule,delayed release(DR/EC) 40 mg PO DAILY RF: 0 lovastatin 20 mg tablet 20 mg PO DAILY RF: 0 Spiriva with HandiHaler 18 mcg capsule, w/inhalation device 1 cap INHALATION DAILY RF: 0 fenofibrate nanocrystallized 48 mg tablet 48 mg PO DAILY RF: 0 Discharge Orders: Discharge Order (Routine); Ordered 06/23/20 Ordered By: Ciaran Matos Referrals: Tyrone Roque MD [Physician] - 1 month (Nursing: Please call Dr. Roque's office ([phone]) prior to discharge and make an appointment for the patient to be seen in 1 month.) Jorge Nielson [Primary Care Provider] - 4-7 days Discharge Diet: GI Soft Discharge Activity: Increase activity as tolerated Patient Instructions: How to Stop Smoking (GEN), Cigarette Smoking and Your Health (GEN), Obstipation (GEN), Infectious Colitis (GEN) Activity Restrictions/Additional Instructions: Please follow-up with your primary care doctor to monitor improvement of your symptoms after discharge from the hospital. Please follow-up with surgery in 1 month for additional assessment after resolution of colitis to exclude any other causes that may have contributed to narrowing of the colon, making sure there is no suspicion of malignant lesions. Please have your primary care doctor recheck your urine to make sure that small amount of blood seen your urine has resolved. This is thought perhaps related to blood in your stool, however, needs to be confirmed and if still present needs to be followed up by additional assessment. Please also have your primary care doctor follow-up your alkaline phosphatase and GGT levels related to your liver. Elevation of these may be related to acute illness, however, if persistent, may need additional assessment to exclude other causes of liver disease, including some chronic illnesses. Please stop smoking as this elevates your risk for various cancers, including of the urinary tract, cardiovascular disease, heart attack, stroke, and other complications. Discharge Attestations Time Spent in Discharge Care*: greater than 30 min Quality Metrics Clinical Quality Measures During this hospital stay, did patient experience: None Coding Level of Care Code Acute g [facility] note Diagnoses Acute colitis K52.9 Right sided abdominal pain R10.9 Elevated CEA R97.0 Sinus tachycardia R00.0 Alkaline phosphatase elevation R74.8 Microscopic hematuria R31.29 Stenosis of colon K56.699 Obstipation K59.00 Smoking addiction F17.200
--- NOTE | 2020-06-23 11:16 | PC.NURSE ---
DISCHARGE INSTRUCTIONS DISCHARGE INSTRUCTIONS GIVEN PER THIS NURSE - VERBALIZES UNDERSTANDING
[2020-06-23 11:43] VITALS: PULSE 111
== END 2020-06-23 11:44 | disposition home or self-care (01) | DRG 391 ==
LOC: ER 09:39 → MEDSURG 13:17
PROVIDERS: Surgery; Admitting Provider Internal Medicine; Emergency Provider Family Medicine; PCP Family Medicine; Visit Provider Internal Medicine
DX: A09 Infectious gastroenteritis and colitis, unspecified (principal); K83.1 Obstruction of bile duct; K56.699 Other intestinal obstruction unspecified as to partial versus complete obstruction; Z86.010 Personal history of colon polyps; K21.9 Gastro-esophageal reflux disease without esophagitis; E78.5 Hyperlipidemia, unspecified; F17.210 Nicotine dependence, cigarettes, uncomplicated; Z90.49 Acquired absence of other specified parts of digestive tract; I70.0 Atherosclerosis of aorta; E27.9 Disorder of adrenal gland, unspecified; K59.00 Constipation, unspecified; R31.29 Other microscopic hematuria; R74.8 Abnormal levels of other serum enzymes; R00.0 Tachycardia, unspecified; E86.0 Dehydration; R97.0 Elevated carcinoembryonic antigen [CEA]
CPT/HCPCS: 12345; 36415; 74177; 80053; 81001; 82378; 82977; 83605; 83630; 83690; 83735; 85025; 85610; 85730; 87493; 87506; 94640; 96365; 96367; 96372; 96375; 96376; 99285; J0744; J1644; J2270; J2405; J2765; J3490; J7030; Q9967; S0030

== ENCOUNTER 2020-07-27 12:51 | Outpatient (CLI) | payer MEDICARE, MEDICAID, SELFPAY ==
--- NOTE | 2020-07-27 13:06 | CT_ITS ---
WS: [id number] CT ABDOMEN AND PELVIS WITH CONTRAST HISTORY: F/U COLITIS, CONTINUING ABDOMINAL PAIN TECHNIQUE: Imaging performed of the abdomen and pelvis with IV contrast. Single phase imaging of the abdomen. Coronal and sagittal reformats are submitted. All CT scans at [facility] use at least one of these dose optimization techniques: automated exposure control; mA and/or kV adjustment per patient size (includes targeted exams where dose is matched to clinical indication); or iterativ e reconstruction. IV CONTRAST: Omnipaque 300; 95 mL IV. Oral contrast: Yes. DLP: 1161.91 mGycm COMPARISON: 06/21/2020 Lower thorax: Benign granuloma at the lingula. Heart is normal size. No hiatal hernia. Liver/biliary system: Normal size with no intrahepatic dilatation. Gallbladder: Status post cholecystectomy. Pancreas: Normal size pancreas and pancreatic duct. No adjacent inflammation. Spleen: Normal size spleen. No mass or infarct. Adrenal glands: Normal RIGHT adrenal gland. Mild thickening of the LEFT adrenal gland with a small no dule measuring 12 mm in the lateral limb. No interval change. Right kidney: Cortical cyst lower pole measures 8 mm. No obstruction. Left kidney: Small extrarenal pelvis. Otherwise negative. Aorta: Mild atherosclerosis with no aneurysm. Lymphadenopathy: None. Free fluid: None. GI tract: Significant improvement in the previously described colitis in the descending colon. There is still mild narrowing near the splenic flexure. The colon distal to the splenic flexure narrowing i s smaller caliber with a few diverticula. Proximal to the splenic flexure with slight increase in the fecal content and air. Abdominal wall: Unremarkable abdominal wall. No hernia. Pelvis: Nondistended urinary bladder. No free fluid or adenopathy. Bones: Lumbar scoliosis. No lumbar spine fracture. Moderate facet joint arthritis at L4-5 and L5-S1 CT/CT abdomen pelvis w con* [id number] IMPRESSION: 1. Descending colonic colitis has resolved. 2. There is some mild persistent change in caliber to splenic flexure without additional soft tissue mass. Early neoplastic stricture or postinflammatory str icture should be considered. Colonoscopy should be obtained. 3. Atherosclerosis aorta. 4. Prior cholecystectomy.
[2020-07-27] MEDS: iohexol 300 mg/mL 50 mL Btl PO (13:09)
[2020-07-27] MEDS: iohexol 300 mg/mL 100 mL Btl IV (14:36)
== END 2020-07-27 12:52 | disposition home or self-care (01) ==
PROVIDERS: PCP Family Medicine; Visit Provider Surgery
DX: R10.9 Unspecified abdominal pain (principal); K52.9 Noninfective gastroenteritis and colitis, unspecified
CPT/HCPCS: 74177; Q9967

== ENCOUNTER 2022-05-04 06:52 | Outpatient (CLI) | payer MEDICARE, MEDICAID, SELFPAY ==
--- NOTE | 2022-05-04 | ECG_ITS ---
[facility] Test Date: 2022-05-04 Pat Name: Danielle Cervantes Department: Room: Gender: Female Patient Centered Care Specialist: Mary Ferris : 1955 Requested By: Jorge Nielson Order Number: [id number] Jeremiah MD: Layla Wray M.D. Interpretive Statements NAME OF STUDY: LEXISCAN SESTAMIBI STRESS TEST INDICATION: Dyspnea on Exertion PROCEDURE: At the baseline, the EKG revealed normal sinus rhythm. The baseline heart was 77 bpm with a blood pressue of 128/86 mm of Hg Lexiscan was infused over a period of 20 seconds. A total of 0.4 milligrams of Lexiscan was infused. The stress phase was continued for a total of 5 minutes. Heart rate at the end of the stress phase was 103 bpm with a blood pressure 130/79 mm of Hg. The EKG at the peak infusion revealed no significant changes. Sestamibi was injected 20 seconds after the Lexiscan infusion. Heart rate at the end of the recovery phase was 90 bpm with a blood pressure of 129/76 mm of Hg. CONCLUSION: 1. No significant EKG changes with the LexiScan infusion 2. No LexiScan induced chest pain or cardiac arrhythmia 3. Normal blood pressure and heart rate response 4. Sestamibi/sestamibi perfusion scan pending; see separate report. Electronically Signed On 05-07-2022 23:40:45 CDT by Layla Wray M.D. [email or web address]
[2022-05-04 07:33] VITALS: BMI 30.7
--- NOTE | 2022-05-04 07:34 | NMCV_ITS ---
NM gumaro perf SPECT r/s* [id number] Danielle Cervantes Age: 66 Gender: F : 1955 Exam Date: 05/04/2022 08:02 Ordering Phys: Jorge Nielson Technologist: ABDIEL Castaneda Exam Location: [facility] Indications: SHORTNESS OF BREATH STRESS TEST Please [facility] IMAGE PROTOCOL Rest/Stress 1 Lexiscan Day Radiopharmaceutical Dose (mCi) Administration Site Administered by Rest: Tc-99m 10.7 IV ABDIEL Aburto Sestamibi Stress:Tc-99m 32.9 IV ABDIEL Castaneda Sestamiermelinda Rest: 04-May-2022 60 Discovery 630 Stress: 04-May-2022 30 Discovery 630 0.4mg Lexiscan. Supine position only as patient was unable to lay prone. SPECT RESULTS Technical Quality: Excellent Raw Data Analysis: Normal Image Corrections: No attenuation or motion correction applied Summed Stress Score: 0 Summed Rest Score: 0 Summed Difference Score: 0 PERFUSION FINDINGS Uniform myocardial tracer uptake with no significant perfusion abnormalities FUNCTIONAL RESULTS (calculated via Gated SPECT) Stress Image LV EF (%): 86 Stress EDV (mL):56 TID: 0.83 Stress ESV (mL):8 FUNCTIONAL FINDINGS: Segmental wall motion analysis revealing no gross wall motion abnormalities IMPRESSIONS 1. Fairly uniform myocardial tracer uptake with no significant perfusion abnormalities. 2. Normal LV ejection fraction of 86%. 3. LV wall motion analysis revealing no gross wall motion normalities. 4. Normal LV volume No similar previous studies are available for comparison Dr Layla Wray MD [facility] (Electronically Signed) Final Date: 05 May 2022 10:58 S
[2022-05-04] MEDS: regadenoson 0.4 Mg/5 ml Syringe IVP (08:30)
[2022-05-04 08:43] VITALS: BP 129/76; PULSE 94
== END 2022-05-04 06:53 | disposition home or self-care (01) ==
PROVIDERS: PCP Family Medicine; Visit Provider Family Medicine
DX: R06.09 Other forms of dyspnea (principal); R06.02 Shortness of breath
CPT/HCPCS: 36415; 78452; 93017; 96374; A9500; J2785